=== PATIENT | male | born 1965 | race Caucasian/White ===

== ENCOUNTER → 2024-08-20 13:41 | Outpatient (CLI) | payer OTHER, SELFPAY | PROVIDERS: PCP Family Medicine; Referring Provider Family Medicine; Visit Provider Family Medicine | DX: R55 Syncope and collapse (principal); Z82.49 Family history of ischemic heart disease and other diseases of the circulatory system | CPT/HCPCS: 93246; 93248 ==

== ENCOUNTER → 2024-08-25 07:22 | Outpatient (CLI) | payer OTHER, SELFPAY ==
[2024-08-25 08:11] LABS: Alanine Aminotransferase 51 IU/L (<50); Albumin 4.3 g/dL (3.5-5.0); Alkaline Phosphatase 83 U/L (38-126); Aspartate Aminotransferase 34 IU/L (17-59); BUN Creatinine Ratio 13.3 (6-22); Bilirubin Total 1.8 mg/dL (0.2-1.3); Blood Urea Nitrogen 14 mg/dL (9-20); Calcium 9.6 mg/dL (8.4-10.2); Carbon Dioxide 26 mmol/L (22-32); Chloride 105 mmol/L (98-107); Cholesterol 188 mg/dL (140-199); Estimated Glomerular Filt Rate > 60 mL/min (>60); Globulin 2.2 g/dL (1.7-4.1); Glucose 108 mg/dL (70-99); HDL Cholesterol 51 mg/dL (40-60); HEMOLYSIS < 15 (0-50); LDL Cholesterol Calculated 112 mg/dL (<100); Potassium 4.7 mmol/L (3.4-5.1); Sodium 139 mmol/L (137-145); Total Protein 6.5 g/dL (6.3-8.2); Triglycerides 126 mg/dL (35-150)
[2024-08-25 08:14] LABS: Add Manual Diff / Slide Review NO; Basophils Absolute Auto 0 /uL (0-100); Basophils Percent Auto 0.2 % (0-2); Eosinophils Absolute Auto 100 /uL (0-450); Eosinophils Percent Auto 1.6 % (2-4); Hematocrit 47.1 % (41-53); Hemoglobin 15.9 g/dL (13.5-17.5); Lymphocytes Absolute Auto 2700 /uL (1100-4500); Mean Corpuscular HGB Conc 33.7 % (30-36); Mean Corpuscular Hemoglobin 30.6 PG (26-34); Mean Corpuscular Volume 90.8 fL (80-100); Monocytes Absolute Auto 700 /uL (0-900); Neutrophils Absolute Auto 3100 /uL (1500-7000); Neutrophils Percent Auto 47.2 % (50-75); Platelet Count 261 X10^3/uL (150-400); Red Blood Cell Count 5.19 X10^6/uL (4.5-5.9); Red Cell Distribution Width 13.6 % (11.6-14.8); White Blood Cell Count 6.6 X10^3/uL (4.5-11.0)
[2024-08-25 08:43] LABS: Thyroid Stimulating Hormone 1.71 uIU/mL (0.47-4.68)
== END ==
LOC: LAB 07:23
PROVIDERS: PCP Family Medicine; Referring Provider Family Medicine; Visit Provider Family Medicine
DX: Z00.00 Encounter for general adult medical examination without abnormal findings (principal); E78.5 Hyperlipidemia, unspecified; R53.83 Other fatigue; Z82.49 Family history of ischemic heart disease and other diseases of the circulatory system
CPT/HCPCS: 36415; 80053; 80061; 84443; 85025

== ENCOUNTER → 2024-11-28 07:08 | Outpatient (CLI) | payer OTHER, SELFPAY ==
[2024-11-28 08:05] LABS: Alanine Aminotransferase 30 IU/L (<50); Albumin 4.1 g/dL (3.5-5.0); Albumin Globulin Ratio 1.8 (1.0-2.8); Alkaline Phosphatase 81 U/L (38-126); Blood Urea Nitrogen 12 mg/dL (9-20); Calcium 9.0 mg/dL (8.4-10.2); Carbon Dioxide 27 mmol/L (22-32); Chloride 104 mmol/L (98-107); Estimated Glomerular Filt Rate > 60 mL/min (>60); Globulin 2.3 g/dL (1.7-4.1); Glucose 97 mg/dL (70-99); HEMOLYSIS < 15 (0-50); Potassium 4.3 mmol/L (3.4-5.1); Sodium 138 mmol/L (137-145); Total Protein 6.4 g/dL (6.3-8.2)
== END ==
PROVIDERS: PCP Family Medicine; Referring Provider Family Medicine; Visit Provider Family Medicine
DX: R74.8 Abnormal levels of other serum enzymes (principal)
CPT/HCPCS: 36415; 80053

== ENCOUNTER → 2024-12-12 06:55 | Outpatient (CLI) | payer OTHER, SELFPAY ==
--- NOTE | 2024-12-12 06:56 | DI.US.S_ITS ---
PROCEDURE: US ABDOMEN LIMITED INDICATIONS: ELEVATED BILIRUBIN TECHNIQUE: Real-time focused scanning was performed of the abdomen, with image documentation. COMPARISON: None. FINDINGS: The liver demonstrates normal size. The liver demonstrates generalized moderately increased echogenicity. This decreases ultrasound sensitivity for detection of hepatic masses. Likely focal fatty sparing can be seen adjacent to the gallbladder, measuring 17 x 18 x 14 mm, without abnormal vascularity. A probable mobile gallstone can be seen measuring up to 7 mm. The gallbladder wall is not thickened, measuring 3 mm or less. No specific pericholecystic fluid is seen. The sonographic Mchugh sign is negative. There is no biliary dilatation, the common bile duct measures 4 mm. The pancreas is not well seen. IMPRESSION: A single apparently mobile gallstone is seen, yet without additional sonographic signs of cholecystitis. Negative for biliary dilatation. Please correlate with physical examination findings, patient presentation, and laboratory values. The liver demonstrates increased echogenicity. This finding is nonspecific, yet it is most commonly attributed to fatty infiltration. Dictated by: Lavelle Sanches M.D. on 12/12/2024 at 11:10 Approved by: Lavelle Sanches M.D. on 12/12/2024 at 11:11
== END ==
PROVIDERS: PCP Family Medicine; Referring Provider Family Medicine; Visit Provider Family Medicine
DX: R17 Unspecified jaundice (principal)
CPT/HCPCS: 76705